=== PATIENT | male | born 1985 | race Caucasian/White ===

== ENCOUNTER 2021-01-11 06:03 | Inpatient (IN) ==
--- NOTE | 2020-12-25 13:42 | PAT Medication Instructions ---
Medication Instructions Date of Service December 25, 2020 Home Medications Medication Instructions Recorded dicyclomine 10 mg capsule 10 mg PO TID #90 cap 08/27/20 citalopram 10 mg tablet 10 mg PO QAM cyclobenzaprine 7.5 mg tablet 7.5 mg PO TID PRN pregabalin 25 mg capsule 25 mg PO QPM dicyclomine 10 mg capsule 10 mg PO TID fluticasone propionate [Flonase] 1 spray INTRANASAL BID PRN DO NOT take the morning of surgery cyclobenzaprine 7.5 mg tablet 7.5 mg PO TID PRN dicyclomine 10 mg capsule 10 mg PO TID Take morning of surgery With a small sip of water, OTHERWISE NOTHING TO EAT OR DRINK AFTER MIDNIGHT: citalopram 10 mg tablet 10 mg PO QAM fluticasone propionate [Flonase] 1 spray INTRANASAL BID PRN (if needed) Take evening before surgery cyclobenzaprine 7.5 mg tablet 7.5 mg PO TID PRN (if needed) pregabalin 25 mg capsule 25 mg PO QPM dicyclomine 10 mg capsule 10 mg PO TID fluticasone propionate [Flonase] 1 spray INTRANASAL BID PRN (if needed) Other Notes If you have any questions please call us at [phone] or [phone] or [phone] or [phone]
--- NOTE | 2020-12-27 11:51 | Anesthesiology Consultation ---
Date of Service December 27, 2020 Assessment & Plan (1) Encounter for pre-operative examination: Chart Review Chart Review: Acceptable Risk for Surgery (pending preop Covid testing ) and Patient seen in Pre Admission Testing Per [facility] appointment 12[facility]27[facility]2020[facility] [place] for medical appts. Wears mask, uses good hand hygiene and socially distances. No known Covid positive contacts or Covid related symptoms. Covid testing scheduled 01/04/21- awaiting results. Educated on importance of self quarantining, social distancing and wearing mask in public both for the patient and household contacts. Consults Requested none Teaching & Discussion Pre-Anesthesia Teaching/Discussion Notes: Instructed NPO after midnight before surgery,except medications with 15 cc of water. Medication instructions provided according to the [facility] guidelines. ASA ASA2 Proposed Anesthesia Anesthesia Type: General Risk / Benefits Reviewed With: PT / POA / Parent / Guardian, Accepts Plan and Informed Consent Obtained History Surgery Operation Date: 01/11/21 07:45 Proposed Procedures p C6-C7 Anterior Cervical Discectomy and Fusion, Spinal Cord Monitoring - Jj Vance DO Height/Weight Height: 5 ft 3 in Weight: 74.5 kg Allergies Allergy/AdvReac Type Severity Reaction Status Date / Time No Known Allergies Allergy NONE Verified 01/11/21 06:33 Medications Home Medications Medication Instructions Recorded Confirmed Last Taken citalopram 10 mg tablet 10 mg PO QAM 05/16/20 01/11/21 01/04/21 cyclobenzaprine 7.5 mg tablet 7.5 mg PO TID PRN 05/16/20 01/11/21 01/04/21 pregabalin 25 mg capsule 25 mg PO QPM 05/16/20 01/11/21 01/04/21 dicyclomine 10 mg capsule 10 mg PO TID #90 cap 08/27/20 01/11/21 01/10/21 12:00 fluticasone propionate [Flonase] 1 spray INTRANASAL BID PRN 12/19/20 01/11/21 01/04/21 Active Medications Generic Name Dose Route Start Last Admin Trade Name Freq PRN Reason Stop Dose Admin Acetaminophen 1,000 mg 01/11/21 06:00 01/11/21 06:50 Acetaminophen 500 Mg Tab PO 01/11/21 18:00 1,000 mg PREOP CAITLIN Administration Celecoxib 200 mg 01/11/21 06:00 01/11/21 06:50 Celebrex 200 Mg Cap PO 01/11/21 18:00 200 mg PREOP CAITLIN Administration Gabapentin 900 mg 01/11/21 06:00 01/11/21 06:50 Gabapentin 900 Mg Dose PO 01/11/21 18:00 900 mg PREOP CAITLIN Administration Lactated Ringer's 1,000 mls @ 15 mls/hr 01/11/21 06:00 01/11/21 06:51 Lr IV 01/12/21 05:59 15 mls/hr .Q24H CAITLIN Administration NPO Date Last Intake of Fluids: 01/11/21 Time Last Intake of Fluids: 00:00 Date Last Intake of Solids: 01/11/21 Time Last Intake of Solids: 00:00 Past Medical History Medical History Chronic back pain with muscle spasms Fibromyalgia Stable Foreign body in right foot- shrapnel Hearing loss of left ear Has hearing aid - wears PRN - worked with explosives in the IBS (irritable bowel syndrome) Associated diarrhea Neuropathy in bilateral legs Post traumatic stress disorder mild, no meds Spinal cord injury 2004--chronic pain/neuropathy--no further deficits Exercise / Class Metabolic Activity II 4-5 Yardwork/Stairs/Walk up hill (one flight of stairs - no chest pain or SOB ) Past Family History Family History Grandfather (Paternal) Family hx colonic polyps Other No family history of adverse response to anesthesia Past Surgical History Surgical History History of appendectomy History of arthroscopy of right knee partial meniscectomy History of colonoscopy History of esophagogastroduodenoscopy (EGD) History of open reduction and internal fixation (ORIF) procedure right hand--hardware in place History of repair of anterior cruciate ligament of right knee with meniscectomy History of wisdom tooth extraction Status post epidural steroid injection multiple Past Anesthesia History No Hx of Anesthesia Complications and No Family Hx of Anesthesia Complications History of PONV No Hx of PONV and No Hx of Motion Sickness STOP BANG Total 0 Social History Smoking Status: Former smoker Do You Dip or Chew Tobacco: No Smoking End Date: QUIT AGE 23 Hx Alcohol Use: Yes Alcohol type: beer, wine and hard liquor alcohol intake frequency: 0-2 drinks per day (1 drink/day ) Hx Substance Use: No substance use type: does not use Review of Systems Rare reflux - diet dependent - relieved with Tums Patient denies chest pain, shortness of breath, dyspnea on exertion, cough, wheezing, palpitations. No hx of seizures, stroke, SD, apnea/snoring. No hx of blood clots or blood transfusions Physical Exam Vital Signs Last Vital Signs Temp 98.2 F 01/11/21 06:36 Pulse 77 01/11/21 06:36 Resp 18 01/11/21 06:36 BP 106/71 01/11/21 06:36 Pulse Ox 97 01/11/21 06:36 VITALS BP 113/73 P 100 TEMP 98.2 SP02 98% RESP 16 Constitutional no acute distress ENMT Mouth: no TMJ clicking Thyromental Distance: > or= 3.5 Finger Breadths (3.5) Mallampati Class: II Neck + limited neck extension and + facial hair (encouraged patient to trim lucero ) Respiratory normal respiratory effort; no respiratory distress Auscultation: lungs clear to auscultation bilaterally; no wheezes Cardiovascular Rate/Rhythm: regular rate and regular rhythm Heart Sounds: no murmur Vessels: no carotid bruit Musculoskeletal Spine: no pain with cervical ROM Extremities: extremities normal to inspection Psychiatric Orientation: alert Testing Laboratory Results 12/27/20 12:11 12/27/20 12:11 PT 10.3 Seconds (9.0-12.0) 12/27/20 12:11 INR 1.0 (0.9-1.1) 12/27/20 12:11 APTT 24.8 Seconds (21.0-31.0) 12/27/20 12:11 Urine Color Yellow 12/27/20 12:11 Urine Appearance Clear (Clear) 12/27/20 12:11 Urine pH 7.0 (4.5-7.5) 12/27/20 12:11 Ur Specific [place] 1.023 (1.000-1.030) 12/27/20 12:11 Urine Protein Negative (Negative) 12/27/20 12:11 Urine Glucose (UA) Negative (Negative) 12/27/20 12:11 Urine Ketones Negative (Negative) 12/27/20 12:11 Urine Nitrite Negative (Negative) 12/27/20 12:11 Ur Leukocyte Esterase Negative (Negative) 12/27/20 12:11 Blood Type O Positive 12/27/20 12:11 Antibody Screen NEGATIVE 12/27/20 12:11 Electrocardiogram Date: 12/27/20 Normal sinus rhythm with sinus arrhythmia at 94 beats per. Chest X-Ray Date: 12/27/20 Findings: + NAD
--- NOTE | 2020-12-27 12:37 | XRay Report ---
XR chest Pre-admission PA/Lat HISTORY: 35 years-old Male pat preoperative exam. No acute chest complaints COMPARISON: None TECHNIQUE: PA and lateral views of the chest FINDINGS: Cardiomediastinal and hilar silhouettes are within normal limits. No pneumothorax, pleural effusion, airspace consolidation or overt pulmonary edema. Bones of the chest appear grossly intact. IMPRESSION: No acute process. ACT 112: Negative or not required by law. The above report was generated using voice recognition software. It may contain grammatical, syntax o r spelling errors. Electronically signed by: Ziyad Thomson M.D. 12/27/2020 12:36 PM
[2020-12-27 12:50] LABS: Basophils # (auto) 0.01 K/uL (0-0.2); Basophils % (auto) 0.1 %; Eosinophils # (auto) 0.01 K/uL (0-0.5); Eosinophils % (auto) 0.1 %; Hematocrit (blood only) 44.1 % (42-52); Hemoglobin 15.6 g/dL (14.0-18.0); Immature Granulocytes # (auto) 0.04 K/uL (0.00-0.02); Immature Granulocytes % (auto) 0.3 %; Lymphocytes # (auto) 1.84 K/uL (1.2-3.4); Lymphocytes % (auto) 15.5 %; Mean Corpuscular Hemoglobin 30.8 pg (25-34); Mean Corpuscular Hgb Conc 35.4 g/dL (32-36); Mean Corpuscular Volume 87.2 fL (80-100); Mean Platelet Volume 10.3 fL (7.4-10.4); Monocytes # (auto) 0.96 K/uL (0.11-0.59); Monocytes % (auto) 8.1 %; Neutrophils # (auto) 9.01 K/uL (1.4-6.5); Neutrophils % (auto) 75.9 %; Platelet Count 268 K/uL (130-400); RDW Coefficient of Variation 12.7 % (11.5-14.5); RDW Standard Deviation 40.5 fL (36.4-46.3); Red Blood Count 5.06 M/uL (4.7-6.1); White Blood Count 11.87 K/uL (4.8-10.8)
[2020-12-27 12:54] LABS: Appearance Urine Clear (Clear); Bilirubin Urine Negative (Negative); Blood Urine Negative (Negative); Color Urine Yellow; Glucose Urine UA Negative (Negative); Ketones Urine Negative (Negative); Leukocyte Esterase Urine Negative (Negative); Nitrite Urine Negative (Negative); Protein Urine Negative (Negative); Specific Gravity Urine 1.023 (1.000-1.030); Urobilinogen Urine Negative (Negative)
[2020-12-27 13:10] LABS: Partial Thromboplastin Ratio 0.9; Partial Thromboplastin Time 24.8 Seconds (21.0-31.0); Prothrombin Time 10.3 Seconds (9.0-12.0)
[2020-12-27 13:49] LABS: BUN Creatinine Ratio 19.8 (10-20); Calcium 8.8 mg/dl (8.5-10.1); Creatinine Clr Calc Pharmacy 67.2 ml/min; Est GFR (African American) 75.4; Est GFR (Non-African American) 65.1; Potassium 3.9 mmol/L (3.5-5.1)
--- NOTE | 2020-12-28 05:47 | Electrocardiogram Report ---
Test Reason : Blood Pressure : / mmHG Vent. Rate : 094 BPM Atrial Rate : 094 BPM P-R Int : 150 ms QRS Dur : 080 ms QT Int : 354 ms P-R-T Axes : 073 067 063 degrees QTc Int : 442 ms Normal sinus rhythm with sinus arrhythmia Normal ECG No previous ECGs available Confirmed by Christ Grant ([id number]) on 12/28/2020 5:46:56 AM Referred By: Jj Vance Confirmed By:Christ Grant
[~2021-01-11 06:03] MED LIST: ACETAMINOPHEN 500 MG TAB PO SCH; CeleBREX 200 MG CAP PO SCH; GABAPENTIN 900 MG DOSE PO SCH; LR 15ML/HR IV SCH; ceFAZolin 1000MG 1,000 MG/7.5 ML SYR IV SCH
[2021-01-11] MEDS ORDERED: ePHEDrine sulfate 50 MG/ML AMP IV PRN (06:52)
[2021-01-11] MEDS ORDERED: ONDANSETRON INJ 2 MG/ML 2 ML VIAL IV PRN ×2 (06:52→10:53)
[2021-01-11] MEDS ORDERED: ATROPINE SULFATE 0.1 MG/ML 10ML SYR IV PRN (06:52)
[2021-01-11] MEDS ORDERED: fentaNYL citrate 100 MCG/2 ML VIAL ONE (07:07)
[2021-01-11] MEDS ORDERED: PROPOFOL IV EMULSION 10 MG/ML 20 ML VIAL IV ONE (07:07)
[2021-01-11] MEDS ORDERED: MIDAZOLAM HCL 1 MG/ML 2ML VIAL ONE (07:07)
[2021-01-11] MEDS ORDERED: ROCURONIUM BROMIDE 10 MG/ML 5 ML VIAL IV ONE ×2 (07:07→08:13)
[2021-01-11] MEDS ORDERED: LIDOCAINE HCL 2% 2 ML VIAL/AMP(20MG/ML) INFIL ONE (07:07)
[2021-01-11] MEDS ORDERED: HYDROmorphone INJ 2 MG/ML SYR/VIAL ONE (07:08)
[2021-01-11] MEDS ORDERED: BACITRACIN INJ 50,000 UNIT VIAL ONE (07:14)
--- NOTE | 2021-01-11 07:33 | History & Physical Bridge Note ---
Date of Service January 11, 2021 History & Physical Bridge Note I have examined the patient, reviewed the History & Physical and in the interval since the performance of the History & Physical I have noted the following changes of clinical significance: no changes noted
--- NOTE | 2021-01-11 07:35 | History & Physical Report ---
Date of Service January 11, 2021 Assessment & Plan (1) Cervical stenosis of spinal canal: Admission and Anticipated Discharge Date Admission Date: C6-C7 anterior cervical discectomy and fusion History of Present Illness Chief Complaint: Neck and arm pain Primary Care Provider: Ignacio De Santiago MD This is a 35-year-old male who presents with chronic persistent neck and arm symptoms after failing course of nonoperative care is here for surgical invention. Allergies Allergy/AdvReac Type Severity Reaction Status Date / Time No Known Allergies Allergy NONE Verified 01/11/21 06:33 Home Medications Medication Instructions Recorded Confirmed Type citalopram 10 mg tablet 10 mg PO QAM 05/16/20 01/11/21 History cyclobenzaprine 7.5 mg tablet 7.5 mg PO TID PRN 05/16/20 01/11/21 History pregabalin 25 mg capsule 25 mg PO QPM 05/16/20 01/11/21 History dicyclomine 10 mg capsule 10 mg PO TID #90 cap 08/27/20 01/11/21 Rx fluticasone propionate [Flonase] 1 spray INTRANASAL BID PRN 12/19/20 01/11/21 History Past Med/Surg History Medical History Chronic back pain with muscle spasms Fibromyalgia Stable Foreign body in right foot- shrapnel Hearing loss of left ear Has hearing aid - wears PRN - worked with explosives in the IBS (irritable bowel syndrome) Associated diarrhea Neuropathy in bilateral legs Post traumatic stress disorder mild, no meds Spinal cord injury 2004--chronic pain/neuropathy--no further deficits Surgical History History of appendectomy History of arthroscopy of right knee partial meniscectomy History of colonoscopy History of esophagogastroduodenoscopy (EGD) History of open reduction and internal fixation (ORIF) procedure right hand--hardware in place History of repair of anterior cruciate ligament of right knee with meniscectomy History of wisdom tooth extraction Status post epidural steroid injection multiple Family History Grandfather (Paternal) Family hx colonic polyps Other No family history of adverse response to anesthesia Social History Smoking Status: Former smoker Smoking End Date: QUIT AGE 23; Second Hand Exposure: Yes (PARENTS SMOKED); Do You Dip or Chew Tobacco: No; Hx Alcohol Use: Yes Alcohol type: beer, wine and hard liquor Hx Substance Use: No Preferred Language: Kiswahili Communication Ability: Effective Training Analyst Required: No Beliefs That Will Affect Care: None Current Living Situation: Spouse and Family Current Living Situation Comment: Lives with and 4 kids Other Information That Helps Us Care for You: No Feels Safe at Home: Yes Safety Concerns: Feels Safe At This Time Assistive Devices: Hearing Aid - Left Physical Exam Physical Exam: Patient is alert and oriented Heart regular in rhythm Lungs clear to auscultation Results & Data ([facility]) Vital Signs (Past 12 Hours) Vital Signs Temp Pulse Resp BP Pulse Ox 01/11/21 06:36 36.8 C 77 18 106/71 97
[2021-01-11] MEDS ORDERED: ceFAZolin 2000MG 2,000 MG/15 ML SYR IV SCH (08:00)
[2021-01-11] MEDS ORDERED: KETAMINE 50 MG/5 ML SYRINGE ONE (08:03)
[2021-01-11] MEDS ORDERED: ONDANSETRON INJ 2 MG/ML 2 ML VIAL ONE (08:13)
[2021-01-11] MEDS ORDERED: DEXAMETHASONE SOD INJ 4 MG/ML VIAL ONE (08:13)
[2021-01-11] MEDS ORDERED: FLOSEAL HEMOSTATIC MATRIX 10ML TOP ONE (08:52)
[2021-01-11] MEDS ORDERED: GLYCOPYRROLATE 0.2 MG/ML VIAL ONE ×2 (08:58→09:01)
[2021-01-11] MEDS ORDERED: NEOSTIGMINE METHYLSULFATE 1 MG/ML 10ML VIAL ONE (08:58)
--- NOTE | 2021-01-11 09:01 | Operative Report ---
Post Operative Report Pre & Post Diagnosis Operation Date: 01/11/21 07:45 Pre-Op Diagnosis: Spinal Stenosis, Cervical Region Post-Op Diagnosis: Spinal Stenosis, Cervical Region I identified the patient and participated in the time-out.: Yes Procedure Operation Date: 01/11/21 07:45 Actual Procedures #1 anterior cervical discectomy with bilateral foraminotomies C6-C7. #2 anterior cervical arthrodesis C6-C7. #3 placement of 8 mm spiral cage filled with I factor C6-C7. #4 application of tejada plate and screws across C6-C7. Surgeon Jj Vance, Pmp Certified Project Manager Ignacio Wilkerson Estimated Blood Loss 20 Findings Consistent with Post-Op Diagnosis Specimens None Indications This is a 35-year-old male who presents above-mentioned diagnosis after failing course of nonoperative care is here for the above-mentioned procedure. Description of Procedure Patient was met with identified informed consent obtained. Patient was then taken to the operative suite underwent ablation placed in spine position with the head [place] head ordered. All body prominences well-padded eyes inspected to ensure no external pressure placed upon. This point the anterior cervical spine was prepped and draped in a sterile fashion. With assistance of fluoroscopy notified the C6-C7 level. Sharp dissection with the assistance of bipolar cautery was then performed down to and exposing the anterior cervical spine at C6-C7. Self-retaining retractors placed. And then verified my position with fluoroscopy. I performed a complete discectomy of C6-7 out to the uncovertebral joints bilaterally. [place] distracting pins utilized to assist in visualization. Removed all posterior annular fibers longitudinal ligament bilateral foraminotomies performed. Endplates were then burred to subcortical any bone and an 8 mm spiral cage filled with I factor tapped in position. Distracting apparatus was removed and a 5 complete and screws applied with the assistance of fluoroscopy. The incision was then copiously irrigated explored to ensure no damage to surrounding structures remaining bleeding. 10 round AVEL drain inserted. Was then closed with 2 Vicryl in a fashion of 4 Monocryl for final skin closure. Steri-Strip sterile dressings placed. Patient will continue to PACU stable condition. Please note spinal cord monitoring was utilized at the procedure no changes noted. Lastly Ignacio Wilkerson was present at the entire surgery involved the patient positioning complex portions of the surgery and final skin closure. I attest to the content of the Intraoperative Record and any orders documented therein. Any exceptions are noted below.
--- NOTE | 2021-01-11 09:26 | Fluoroscopy Report ---
FL cervical 2-3V CLINICAL HISTORY: C6-C7 FUSION COMPARISON STUDY: None. FLUOROSCOPY TIME: 10 seconds. FINDINGS: 2 fluoroscopic spot images of the cervical spine demonstrate anterior cervical discectomy a nd fusion at C6-C7. The hardware appears intact. IMPRESSION: Fluoroscopy provided for C6-C7 ACDF. ACT 112: Negative or not required by law. Electronically signed by: Dagoberto Salomon M.D. 01/11/2021 9:25 AM
[2021-01-11] MEDS: fentaNYL citrate 100 MCG/2 ML VIAL IV PRN ×2 (09:40→09:45)
--- NOTE | 2021-01-11 10:23 | Anesthesiology Progress Note ---
Date of Service January 11, 2021 Anesthesia Post Procedure Vital Signs Vital Signs: Temp Pulse Pulse Resp BP BP Pulse Ox 01/11/21 10:15 97.7 F 71 16 128/87 97 01/11/21 10:05 78 16 127/73 100 01/11/21 09:55 64 16 137/70 99 01/11/21 09:45 66 16 130/69 100 01/11/21 09:35 77 16 130/77 97 01/11/21 09:27 96.8 F L 100 H 16 125/84 100 01/11/21 06:36 98.2 F 77 18 106/71 97 Pain Intensity Upper Medial Back: Pain Intensity: 5 Transfer of Care Handoff Completed per policy Notes Mental Status: alert / awake / arousable and participated in evaluation Patient Amnestic to Procedure: Yes Nausea / Vomiting: adequately controlled Pain: adequately controlled Airway Patency, RR, SpO2: stable & adequate BP & HR: stable & adequate Hydration State: stable & adequate Anesthetic Complications: no major complications apparent and Pt Satisfied with anesthetic care
[2021-01-11] MEDS ORDERED: DO NOT ADMINISTER FLU VACCINE PRN (10:53)
[2021-01-11] MEDS ORDERED: dexAMETHasone 8 MG in SYRINGE 0 ML IV PRN (10:53)
[2021-01-11] MEDS ORDERED: FAMOTIDINE 20 MG TAB PO PRN (10:53)
[2021-01-11] MEDS ORDERED: MAGNESIUM HYDROXIDE SUSP 30 ML UDC PO PRN (10:53)
[2021-01-11] MEDS ORDERED: LORazepam 0.5 MG/1 ML VIAL IV PRN (10:53)
[2021-01-11] MEDS ORDERED: ACETAMINOPHEN 1,000 MG/100 ML VIAL IV PRN (10:53)
[2021-01-11] MEDS ORDERED: ONDANSETRON 4 MG OD TAB PO PRN (10:53)
[2021-01-11] MEDS ORDERED: RACEPINEPHRINE 2.25% NEBU SOLN 0.5 ML VIAL INH PRN (10:53)
[2021-01-11] MEDS ORDERED: NALOXONE HCL 0.4 MG/1 ML VIAL/CARP IV PRN (10:53)
[2021-01-11] MEDS ORDERED: DO NOT ADMINISTER PNEUMOCOCCAL VACCINE PRN (10:53)
[2021-01-11] MEDS ORDERED: METOCLOPRAMIDE HCL INJ 5 MG/ML 2 ML VIAL IV PRN (10:53)
[2021-01-11] MEDS ORDERED: ACETAMINOPHEN 500 MG TAB PO PRN (10:53)
[2021-01-11] MEDS ORDERED: LORazepam 0.5 MG TAB PO PRN (10:53)
[2021-01-11] MEDS ORDERED: diphenhydrAMINE Capsule 25 MG CAP PO PRN (10:53)
[2021-01-11] MEDS ORDERED: SOD PHOSPHATE/SOD BIPHOSPHATE ENEMA 132 ML BTL PR PRN (10:53)
[2021-01-11] MEDS ORDERED: traMADol HCL 50 MG TABLET PO PRN (10:53)
[2021-01-11] MEDS ORDERED: PROMETHAZINE HCL 12.5 MG in SODIUM CHLORIDE 0.9% 50 ML IV PRN (10:53)
[2021-01-11] MEDS ORDERED: HYDROmorphone INJ 0.5 MG/0.5 ML SYR IV PRN (10:53)
[2021-01-11] MEDS ORDERED: FLUTICASONE PROPIONATE NA SPR 16 GM BTL PRN (10:53)
[2021-01-11] MEDS ORDERED: hydrOXYzine HCl 25 MG TAB PO PRN (10:53)
[2021-01-11] MEDS ORDERED: ALUMINUM/MAGNESIUM SUSP 30 ML UDC PO PRN (10:53)
[2021-01-11] MEDS ORDERED: HYDROmorphone INJ 1 MG/ML SYRINGE IV PRN (10:53)
[2021-01-11] MEDS ORDERED: CYCLOBENZAPRINE HCL 5 MG TAB PO PRN (11:04)
[2021-01-11] MEDS: LACTATED RINGER'S 1,000 ML IV SCH ×2 (12:46→20:35)
[2021-01-11] MEDS: DICYCLOMINE HCL 10 MG CAP PO SCH ×2 (13:59→20:35)
[2021-01-11] MEDS: ceFAZolin 2000MG 2,000 MG/15 ML SYR IV SCH ×2 (15:47→20:40)
[2021-01-11] MEDS ORDERED: PREGABALIN 25 MG CAP PO SCH (21:00)
[2021-01-11] MEDS ORDERED: DOCUSATE SODIUM/SENNA 50/8.6MG TAB PO SCH (21:00)
[2021-01-12] MEDS ORDERED: POLYETHYLENE (MIRALAX) 17 GM PACK PO SCH (06:00)
--- NOTE | 2021-01-12 07:49 | Orthopedic Progress Note ---
Date of Service January 12, 2021 Assessment & Plan (1) Cervical stenosis of spinal canal: We will discharge patient home today. All questions have been reviewed. We will DC AVEL drain and dressing change prior to discharge. Admission and Anticipated Discharge Date Admission Date: January 11, 2021 Supervising Physician Co-Signing Physician Notes Dr. Jj Vance Subjective Patient is postoperative day 1 ACDF C5-6. He is doing fantastic. He feels great. Denies radicular arm pain or paresthesia. Denies dysphonia or dysphagia. AVEL drain output last returned with 10 cc. He is up and ambulatory. He is passing flatus. Denies shortness of breath or chest pain. Review of Systems Review of Systems: All systems reviewed & are unremarkable except as noted in HPI & below Physical Exam Physical Exam: He is up and ambulatory around the room. [place] J collar is intact. Cervical dressing has modest drainage. AVEL drain is intact and functioning. Strength is 5/5 bilateral biceps, triceps, deltoid. Constitutional: WD/WN, vitals as above Eyes: normal visual gutierrez by confrontation ENMT: external ear and nose normal, oropharynx normal Neck: normal visual inspection Respiratory: normal respiratory effort Cardiovascular: Extremities: normal capillary refill Chest (Breasts): Chest: normal inspection of chest Gastrointestinal (Abdomen): Inspection/Auscultation: abdomen normal to inspection Musculoskeletal: no cyanosis or clubbing, extremities motor strength 5/5 Gait: normal gait Skin: no rashes, warm and dry Neurologic: normal touch/pain/proprioception and moves all extremities Psychiatric: A+Ox3, euthymic affect Results & Data ([facility]) Vital Signs (Past 12 Hours) Vital Signs Temp Pulse Resp BP BP Pulse Ox 01/12/21 05:49 36.5 C 78 15 118/71 94 01/12/21 03:45 36.7 C 90 16 122/78 95 01/12/21 03:00 112 H 18 96 01/12/21 01:45 36.7 C 84 16 107/80 96 01/11/21 23:58 36.8 C 86 20 106/65 96 01/11/21 23:00 102 H 16 100 01/11/21 21:47 37.2 C 78 16 138/76 97
[2021-01-12] MEDS: DICYCLOMINE HCL 10 MG CAP PO SCH (07:56)
[2021-01-12] MEDS ORDERED: CITALOPRAM 20 MG TAB PO SCH (09:00)
[2021-01-13] MEDS ORDERED: bisacodyL 10 MG SUPP PR PRN (09:02)
--- NOTE | 2021-01-18 07:35 | Discharge Summary ---
Date of Service January 18, 2021 Admission HPI Per Admitting Provider This is a 35-year-old male who presents with chronic persistent neck and arm symptoms after failing course of nonoperative care is here for surgical invention. Discharge Data Procedures Performed Operation Date: 01/11/21 07:45 Actual Procedures p C6-C7 Anterior Cervical Discectomy and Fusion, Spinal Cord Monitoring(Not Applicable) - Jj Vance DO Hospital Course (1) Cervical stenosis of spinal canal: Patient is a 35-year-old male with history physical examination radiographic images consistent with the above diagnosis. For this reason he was brought to the operating room and undergone an anterior cervical discectomy and fusion. Former Dr. Vance under general anesthesia. The patient left the operating room with a AVEL drain in place and was transferred to PACU in stable condition. He was in a hard cervical collar. He was then transferred to the orthopedic floor. Throughout the evening his dressings remain clean dry and intact his calves remained supple nontender. He is tolerating p.o. postop day #1 he was deemed safe for home discharge. He is to change dressing once daily till is dry. The AVEL drain is DC'd prior to discharge. He is to be seen in the office in 2 weeks or sooner if he develops any increased pain fever chills or difficulty swallowing.
== END 2021-01-12 10:01 | disposition home or self-care (01) | DRG 473 ==
LOC: ASU 06:03 → 3E 09:38